=== PATIENT | female | born 1930 | race Caucasian/White ===

== ENCOUNTER 2017-06-12 01:10 | Inpatient (IN) ==
[2017-06-11 15:09] LABS: MANUAL DIFF NEEDED? NO
[2017-06-11 15:19] LABS: BASO% 0.4 % (0.0-0.8); EOS# 0.21 X1000 (0.0-0.7); EOS% 3.1 % (0.0-10.0); HEMATOCRIT 37.2 % (37.0-47.0); HEMOGLOBIN 12.1 g/dL (12.0-16.0); IMM GRAN# 0.02 X1000 (0.0-0.04); IMM GRAN% 0.3 % (0.0-0.5); LYMPH# 0.85 X1000 (1.2-3.4); LYMPH% 12.7 % (20.5-51.1); MCH 30.9 PG (27-31); MCHC 32.5 g/dL (33-37); MCV 94.9 FL (81-99); MONO# 0.74 X1000 (0.11-0.59); MPV 10.1 FL (7.4-10.4); NEUT% 72.5 % (42.2-75.2); PLT 264 X1000 (130-400); RBC 3.92 XMIL (4.2-5.4)
[2017-06-11 15:23] LABS: URINE SOURCE CLEAN CATCH
[2017-06-11 15:27] LABS: BILIRUBIN URINE SMALL (NEGATIVE); BLOOD URINE LARGE (NEGATIVE); CLARITY CLEAR (CLEAR); COLOR YELLOW; GLUCOSE URINE 100 mg/dL (NEGATIVE); LEUKOCYTES URINE MODERATE (NEGATIVE); NITRITE URINE NEGATIVE (NEGATIVE); PROTEIN URINE 100 mg/dL (NEGATIVE); SP GRAVITY URINE >= 1.030
[2017-06-11 15:30] LABS: URINE EPITHELIAL CELLS >10 /HPF (<10); URINE WBC TNTC /HPF (<10)
[2017-06-11 15:35] LABS: INR 1.04; PTT 25.6 Seconds (22.0-36.0)
--- NOTE | 2017-06-11 15:41 | EKG Report ---
Test Performed on : 06/11/2017 2:20:13 PM Test Reason : PAT Blood Pressure : / mmHG Vent. Rate : 064 BPM Atrial Rate : 064 BPM P-R Int : 142 ms QRS Dur : 082 ms QT Int : 430 ms P-R-T Axes : 082 011 051 degrees QTc Int : 443 ms Normal sinus rhythm. Normal ECG No previous ECGs available Confirmed by Saul Rodriguez MD ([id number]) on 06/11/2017 8:38:02 PM
[2017-06-11 15:52] LABS: CALCIUM 8.9 mg/dL (8.8-10.2); POTASSIUM 4.5 mmol/L (3.5-5.1)
[2017-06-12] MEDS ORDERED: COLACE ONE (10:29)
[2017-06-12] MEDS ORDERED: CELEBREX ONE (10:30)
[2017-06-12] MEDS ORDERED: LYRICA ONE (10:30)
[2017-06-12] MEDS ORDERED: REGLAN ONE (10:30)
[2017-06-12] MEDS ORDERED: PEPCID ONE (10:30)
[2017-06-12] MEDS ORDERED: LR 1,000 ML ONE (10:31)
[2017-06-12] MEDS ORDERED: VANCOMYCIN 1 GM/NS 1 GM/250 ML IVPB ONE (10:31)
[2017-06-12] MEDS ORDERED: XYLOCAINE-MPF 2% ONE (10:55)
[2017-06-12] MEDS ORDERED: QUELICIN (DOSE) ONE (10:55)
[2017-06-12] MEDS ORDERED: NEO-SYNEPHRINE ONE (10:55)
[2017-06-12] MEDS ORDERED: DURAMORPH ONE (10:58)
[2017-06-12] MEDS ORDERED: TORADOL ONE (10:58)
[2017-06-12] MEDS ORDERED: VANCOMYCIN ONE (10:59)
[2017-06-12] MEDS ORDERED: SODIUM CHLORIDE 0.9% ONE (10:59)
[2017-06-12] MEDS ORDERED: CYKLOKAPRON 1,000 MG/NS 1,000 MG/100 ML IVPB ONE (10:59)
[2017-06-12] MEDS ORDERED: MARCAINE 0.25% PF ONE (10:59)
[2017-06-12] MEDS ORDERED: EXPAREL 1.3% ONE (10:59)
[2017-06-12] MEDS ORDERED: NEOSPORIN G.U. IRRIGANT ONE (11:00)
[2017-06-12] MEDS ORDERED: VERSED ONE (11:34)
[2017-06-12] MEDS ORDERED: NAROPIN 0.5% ONE (11:34)
[2017-06-12] MEDS ORDERED: APRESOLINE ONE (12:33)
[2017-06-12] MEDS ORDERED: AMIDATE ONE (12:53)
[2017-06-12 13:16] LABS: URINE MICRO REVIEW NEEDED? NO; URINE SOURCE CATH
[2017-06-12 13:21] LABS: BILIRUBIN URINE NEGATIVE (NEGATIVE); BLOOD URINE NEGATIVE (NEGATIVE); COLOR YELLOW; GLUCOSE URINE NEGATIVE (NEGATIVE); LEUKOCYTES URINE NEGATIVE (NEGATIVE); NITRITE URINE NEGATIVE (NEGATIVE); PROTEIN URINE NEGATIVE (NEGATIVE); SP GRAVITY URINE 1.017; TURBIDITY URINE CLEAR (CLEAR); UROBILINOGEN URINE NORMAL (NORMAL)
[2017-06-12 13:23] LABS: UR EPITHELIAL CELLS <10 /HPF (<10); URINE BACTERIA NEGATIVE /HPF; URINE RBC <10 /HPF (<10); URINE WBC <10 /HPF (<10)
--- NOTE | 2017-06-12 14:50 | Diag Imaging Result Doc PS360 ---
SHOULDER 1 VIEW LEFT - 06/12/2017 INDICATION: Left total shoulder TECHNIQUE: COMPARISON: 05/17/2017 FINDINGS: There has been left total shoulder arthroplasty. Alignment is anatomic. No hardware fracture or loosening. Stable widening of the acromioclavicular joint. IMPRESSION: No evidence of complication. Electronically signed by Luis Newton 06/12/2017 2:47 PM
[2017-06-12] MEDS: NS 1,000 ML ONE (15:00)
[2017-06-12] MEDS ORDERED: MORPHINE IV PRN (15:50)
[2017-06-12] MEDS ORDERED: ZOFRAN IV PRN (16:00)
[2017-06-12] MEDS: NS 1,000 ML IV SCH (16:00)
[2017-06-12] MEDS ORDERED: CYKLOKAPRON 1,000 MG in NS 100 ML IV ONE (18:40)
[2017-06-12] MEDS: LYRICA PO SCH (20:17)
[2017-06-12] MEDS: MIRAPEX PO SCH (20:18)
[2017-06-12] MEDS: OXY IR PO PRN (20:18)
[2017-06-12] MEDS: ZOLOFT PO SCH (20:18)
[2017-06-12] MEDS: PERIDEX MT SCH (20:19)
[2017-06-12] MEDS: TRANDATE PO SCH (20:19)
--- NOTE | 2017-06-12 21:28 | OPERATIVE NOTE ---
PROCEDURE DATE: 06/12/2017 PREOPERATIVE DIAGNOSIS: Left displaced proximal humeral fracture. POSTOPERATIVE DIAGNOSIS: Left displaced proximal humeral fracture. PROCEDURE: Left reverse total shoulder arthroplasty with DePuy Delta Xtend size 12 cemented stem, a 42+ 6 humeral cup, and a 42 eccentric glenosphere. SURGEONS: Nick SURG NURSE: Justin Welch SECOND AIRLINE STEWARDESS: Wm Rivas ANESTHESIA: General. IV FLUIDS: 700 mL lactated Ringer's. ESTIMATED BLOOD LOSS: 100 mL. COMPLICATIONS: None. INDICATION: The patient is a pleasant, 87-year-old female who is status post fall, sustaining a left proximal humeral fracture. The patient has had displacement. X-rays revealed displacement of the fracture, and recommendation to proceed with left reverse shoulder arthroplasty was offered. Risks and benefits of surgery were explained, including the risks of anesthesia, , bleeding, infection, failure to relieve pain, postoperative stiffness, nerve injury, blood clots, and other imponderables. All questions answered. The patient and family wished to proceed with surgery. DETAILS OF OPERATION: The patient was taken to the operating room and placed supine on the operating table. Once adequate anesthesia was obtained, the patient was placed in semi-Price beach-chair position. The left shoulder was subsequently prepped and draped in usual sterile fashion. Standard deltopectoral incision made with skin knife. Hemostasis was obtained using electrocautery. The deltopectoral interval was then developed. Retractor was then placed. Jimenez retractor was placed. The clavipectoral fascia was then elevated. The site of the fracture was then identified. Elevation of soft tissue was conducted off the proximal humerus and the removal of the superior portion of the fracture of the humeral head and greater and the lesser tuberosities was performed. After this had been performed, attention was then turned to the glenoid. Circumferential dissection then performed with a deep knife. A guide was then placed in position. The guide pin was placed in the glenoid. Reaming was then conducted. After this had been performed, central hole was dilated. Wounds copiously irrigated with antibiotic pulsatile lavage. Three locking screws and 1 nonlocking screw were placed. The wound was copiously irrigated once again. The patient had a 42 eccentric glenosphere placed with the eccentricity placed inferiorly and had good purchase. Attention then turned to the humerus. Reaming was then conducted of the intramedullary canal. A trial stem was then placed, up to size 12 mm. A trial 12 stem was then placed to determine the appropriate height. After this had been determined, the trial was removed. Copious irrigation was then performed with antibiotic pulsatile lavage while vancomycin was mixed cement on back table. The cement was then impacted in the humeral shaft. The size 12 delta Xtend stem was then placed in position and held in 10 degrees of retroversion while cement cured. After the cement had cured, trial cup size was then placed. A 42+ 6 humeral cup had excellent stability and range of motion. Trial cup was then removed. The wound was copiously once again. A 42+ 6 humeral cup was then placed. The shoulder was reduced, carried through range of motion, and had good range of motion and good stability. Exparel was placed in deep soft tissue, as well subcutaneous tissue. The wound was copiously irrigated once again with antibiotic pulsatile lavage. A 2-0 Vicryl was then used to repair the subcutaneous tissue, followed by running 2-0 Prolene. Benzoin and Steri-Strips were applied. Adaptic, sterile Webril, sterile 4 x 4's, ABD pad, and tape to the left shoulder, followed by a shoulder immobilizer. All counts were correct. The patient tolerated the procedure well and was transferred to recovery room in stable condition. cc: Kendall Romero MD
[2017-06-12] MEDS ORDERED: VANCOMYCIN 1 GM/NS 1 GM/250 ML IVPB IV ONE (23:00)
[2017-06-13] MEDS: OXY IR PO PRN ×5 (01:11→20:01)
[2017-06-13] MEDS: NS 1,000 ML IV SCH ×2 (05:25→16:09)
[2017-06-13] MEDS: NS 1,000 ML ONE (05:26)
[2017-06-13 06:04] LABS: AGAP 11; BUN 23 mg/dL (8-22); CALCIUM 8.1 mg/dL (8.8-10.2); CHLORIDE 102 mmol/L (98-107); COSMO 276; HEMATOCRIT 30.4 % (37.0-47.0); HEMOGLOBIN 9.8 g/dL (12.0-16.0); POTASSIUM 4.1 mmol/L (3.5-5.1); SODIUM 137 mmol/L (136-145); TCO2 24 mmol/L (25-35)
--- NOTE | 2017-06-13 07:21 | PROGRESS NOTE ---
DATE: 06/13/2017 SUBJECTIVE: The patient is a pleasant 87-year-old female who is 1 day status post left reversal shoulder arthroplasty. Patient is currently resting comfortably this morning. OBJECTIVE: On physical exam, patient's left upper extremity her dressing is intact. She is neurovascularly intact. She is able to flex in all of her fingers. LABORATORY DATA: Her hemoglobin is 9.8 and hematocrit is 30.4. IMPRESSION: Postop day #1 status post left reversal shoulder arthroplasty. PLAN: At this point, we will change her dressing. We will Hep-Lock her IV and discontinue her Gaines. We will mobilize her physical therapy. We will see how the patient responds to physical therapy and determine discharge planning. cc: Kendall Romero MD
--- NOTE | 2017-06-13 09:06 | PROGRESS NOTE ---
DATE: 06/13/2017 SUBJECTIVE: She is postoperative day #1 for a left reverse total shoulder arthroplasty secondary to a left displaced proximal humeral fracture. Postoperatively, her blood pressure was low. She felt dizzy and lightheaded. Her blood pressure is now trending upward. She denies any chest pain, palpitations, or anginal equivalents. OBJECTIVE: Vital signs: Temperature 99.2, pulse 80, respirations 20, BP 161/54. CV: Regular rate and rhythm with a 2/6 systolic ejection murmur at the left sternal margin. Lungs: Clear. Abdomen: Soft, nontender, with active bowel sounds. ASSESSMENT AND PLAN: Hypertension. Her blood pressure is trend upward. We will resume labetalol 200 mg b.i.d. and Avapro 300 mg daily. We will monitor her blood pressure closely. cc: MD Kendall Gonzalez MD
[2017-06-13] MEDS: MIRAPEX PO SCH ×2 (10:26→20:00)
[2017-06-13] MEDS: ESTRACE PO SCH (10:27)
[2017-06-13] MEDS: TRANDATE PO SCH ×2 (10:28→20:01)
[2017-06-13] MEDS: WELCHOL PO SCH ×2 (10:28→20:01)
[2017-06-13] MEDS: AVAPRO PO SCH (10:28)
[2017-06-13] MEDS: ARICEPT PO SCH (10:29)
[2017-06-13] MEDS: PERIDEX MT SCH ×2 (10:34→20:00)
[2017-06-13] MEDS: NAMENDA XR PO SCH (11:06)
[2017-06-13] MEDS: ZOLOFT PO SCH (20:00)
[2017-06-13] MEDS: LYRICA PO SCH (20:01)
[2017-06-14] MEDS: OXY IR PO PRN ×3 (03:36→20:52)
[2017-06-14 05:36] LABS: HEMATOCRIT 29.3 % (37.0-47.0); HEMOGLOBIN 9.7 g/dL (12.0-16.0)
--- NOTE | 2017-06-14 08:47 | PROGRESS NOTE ---
DATE: 06/14/2017 SUBJECTIVE: The patient is a pleasant, 87-year-old female, who is 2 days status post left reverse shoulder arthroplasty for a proximal humeral fracture. She is currently sitting in a chair and resting comfortably. OBJECTIVE: Extremities: On physical examination of the patient's left upper extremity, her wound looks good. There are no signs of infection. She is able to flex her fingers. She is neurovascularly intact distally. 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 LABORATORY DATA: Her hemoglobin is 9.7, hematocrit is 29.3. IMPRESSION: 1. Postoperative day #2 status post left reverse shoulder arthroplasty. 2. Acute blood loss anemia, asymptomatic. PLAN: Plan at this point reveals the patient is slow to mobilize with physical therapy, and it is felt that she would benefit from inpatient rehabilitation when [facility] have been consulted for this. We will continue working with physical therapy, and will recheck her hemoglobin and hematocrit tomorrow. cc: Kendall Romero MD
[2017-06-14] MEDS: TRANDATE PO SCH ×2 (10:19→20:53)
[2017-06-14] MEDS: ESTRACE PO SCH (10:19)
[2017-06-14] MEDS: MIRAPEX PO SCH ×2 (10:19→20:53)
[2017-06-14] MEDS: WELCHOL PO SCH ×2 (10:19→20:53)
[2017-06-14] MEDS: AVAPRO PO SCH (10:19)
[2017-06-14] MEDS: PERIDEX MT SCH ×2 (10:20→20:53)
[2017-06-14] MEDS: ARICEPT PO SCH (10:20)
[2017-06-14] MEDS: NORVASC PO SCH (10:20)
[2017-06-14] MEDS: NAMENDA XR PO SCH (10:20)
--- NOTE | 2017-06-14 11:03 | PROGRESS NOTE ---
DATE: 06/14/2017 SUBJECTIVE: Ms. Finley is sitting up in a chair. She has a sling on the left arm, and I think she is a little discouraged. She is hurting in the left shoulder. She said the left shoulder just had surgery. The right has a torn rotator cuff, and they are looking for a rehab place for her. Her family does not want her to go home. OBJECTIVE: Temperature 98.8 degrees, pulse 80, respirations 16, blood pressure 154/51. Lungs are clear in all lung mcdowell. Cardiovascular: Regular and rate without murmur or S3. Abdomen is soft. Skin is warm and dry. Urine output is 2200 mL. PAST MEDICAL HISTORY: Reviewed. ASSESSMENT AND PLAN: 1. Postoperative day #2. Status post left reverse shoulder arthroplasty. Family really wants her to go to rehab. She is not able to stay by herself. Social Service is looking for opportunities, probably on Friday. 2. Acute blood loss anemia, asymptomatic. Lab stable. Hematocrit 29, hemoglobin 9.7. Shoulder x-ray from 06/12/2017. No evidence of complication. Status post total left shoulder arthroplasty. OTHER PERTINENT PAST MEDICAL HISTORY: History of COPD, which I think is mild. History of hypertension, osteoarthritis, macular degeneration, history of anxiety and depression, dementia, peripheral edema, neuropathy in legs, degenerative disk disease, bilateral hearing loss. cc: MD Kendall Canales MD
[2017-06-14] MEDS: NS 1,000 ML IV SCH ×2 (12:33→17:59)
[2017-06-14] MEDS: LYRICA PO SCH (20:52)
[2017-06-14] MEDS: ZOLOFT PO SCH (20:53)
[2017-06-15] MEDS: OXY IR PO PRN ×5 (03:45→19:26)
[2017-06-15] MEDS: NS 1,000 ML IV SCH ×2 (04:28→16:52)
[2017-06-15 06:02] LABS: HEMOGLOBIN 9.5 g/dL (12.0-16.0)
--- NOTE | 2017-06-15 08:19 | PROGRESS NOTE ---
DATE: 06/15/2017 SUBJECTIVE: Ms. Finley was asleep this morning. After I woke her up, she had just gotten a pain pill. Has been hurting a little bit in the left shoulder but overall doing okay. OBJECTIVE: Left Upper Extremity Examination: Dressing is clean, dry, and intact. She is neurovascularly intact to the left upper extremity. Just a little bit of swelling to the shoulder. Good 2+ radial pulse. ASSESSMENT: Status post left reverse total shoulder arthroplasty. PLAN: I think Ms. Finley is doing well. We will still plan on discharging her to rehab as soon as everything is set up. cc: MD Kendall Valenzuela MD
[2017-06-15] MEDS: MIRAPEX PO SCH ×2 (10:39→20:56)
[2017-06-15] MEDS: NAMENDA XR PO SCH (10:40)
[2017-06-15] MEDS: NORVASC PO SCH (10:40)
[2017-06-15] MEDS: WELCHOL PO SCH ×2 (10:40→20:56)
[2017-06-15] MEDS: TRANDATE PO SCH ×2 (10:41→20:56)
[2017-06-15] MEDS: ESTRACE PO SCH (10:41)
[2017-06-15] MEDS: AVAPRO PO SCH (10:41)
[2017-06-15] MEDS: PERIDEX MT SCH ×2 (10:42→20:56)
[2017-06-15] MEDS: ARICEPT PO SCH (10:42)
--- NOTE | 2017-06-15 13:11 | PROGRESS NOTE ---
DATE: 06/15/2017 SUBJECTIVE: Ms. Finley is laying in bed. She says she feels better. Left arm feels better out of the sling and she got a pretty good night sleep last night. Appetite is good and no trouble with breathing. OBJECTIVE: Vital Signs: Temperature 98.1 degrees, pulse 76, respirations 18, blood pressure 183/78. Her range of blood pressures have been 148 to around 188 over 51 to 78. Lungs: Clear in all lung mcdowell. Cardiovascular: Regular rhythm and rate without murmur or S3. Abdomen: Soft. Skin: Warm and dry. Urine output is 1700 mL. ASSESSMENT AND PLAN: 1. Status post left reversal total shoulder arthroplasty. She is doing very well. Hope to get her to rehab tomorrow. 2. Acute blood loss anemia, asymptomatic. Hematocrit stable at 29, hemoglobin 9.7. On review of her orders I do not see anything to change at this point. Awaiting on rehab. cc: MD Kendall Canales MD
[2017-06-15] MEDS: ZOLOFT PO SCH (20:56)
[2017-06-15] MEDS: LYRICA PO SCH (20:56)
[2017-06-16] MEDS: NS 1,000 ML IV SCH (04:54)
[2017-06-16] MEDS: OXY IR PO PRN ×3 (04:54→12:46)
--- NOTE | 2017-06-16 06:54 | PROGRESS NOTE ---
DATE: 06/16/2017 SUBJECTIVE: Patient is a pleasant 87-year-old female who is 4 days status post left reverse shoulder arthroplasty. She would presents for evaluation. OBJECTIVE: The patient's left upper extremity, her wound looks good. There is no signs or symptoms of infection. She has smooth, passive range of motion. 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 Neurovascularly intact distally. LABORATORY DATA: Her hemoglobin yesterday was 9.5 and 29.0, and she was asymptomatic. IMPRESSION: Postoperative day #4 status post left reverse shoulder arthroplasty. PLAN: At this point, patient will be discharged to rehab. cc: Kendall Romero MD
--- NOTE | 2017-06-16 07:34 | DISCHARGE SUMMARY ---
ADMISSION DATE: 06/12/2017 DISCHARGE DATE: 06/16/2017 ADMITTING DIAGNOSIS: Left displaced proximal humeral fracture. DISCHARGE DIAGNOSES: 1. Left displaced proximal humeral fracture, status post left reverse total shoulder arthroplasty. 2. Acute blood loss anemia. BRIEF HISTORY: The patient is a pleasant, 87-year-old female who is status post fall, sustaining a left displaced proximal humeral fracture. X-rays were reviewed, and recommendation to proceed with left reverse total shoulder arthroplasty was offered. Risks and benefits of surgery were explained, including the risks of anesthesia, , bleeding, infection, failure to relieve pain, postoperative stiffness, nerve injury, blood clots, and other imponderables. All questions were answered. The patient and family wished to proceed with surgery. HOSPITAL COURSE: The patient was admitted to the hospital and underwent left reverse total shoulder arthroplasty. The patient tolerated the procedure well. She had an uneventful postoperative course. By postoperative day #3, her hemoglobin and hematocrit had stabilized to 9.5 and 29.0, and she was asymptomatic. Prior to discharge, the patient was afebrile, tolerating regular diet, wound looked good. There were no signs or symptoms of infection. Her pain was well controlled with p.o. medications. It was felt the patient would benefit with inpatient rehabilitation. The patient and family were agreeable to this. DISCHARGE MEDICATIONS: OxyIR 5 mg 1 to 2 p.o. every 4 hours p.r.n. pain. For remaining medications, see please medication list. PLAN: 1. At this point, the patient will be discharged for inpatient rehab. 2. Consult Physical Therapy for mobilization and passive range of motion exercises to the left shoulder, and active range of motion to the elbow, wrist, and fingers. 3. Discontinue sutures in 10 days. 4. Follow up in the office upon discharge from rehab in 3 to 4 weeks. cc: Kendall Romero MD
[2017-06-16] MEDS: PERIDEX MT SCH ×2 (08:32→08:36)
[2017-06-16] MEDS: ARICEPT PO SCH (08:33)
[2017-06-16] MEDS: AVAPRO PO SCH (08:33)
[2017-06-16] MEDS: TRANDATE PO SCH (08:33)
[2017-06-16] MEDS: ESTRACE PO SCH (08:33)
[2017-06-16] MEDS: MIRAPEX PO SCH (08:33)
[2017-06-16] MEDS: NORVASC PO SCH (08:33)
[2017-06-16] MEDS: WELCHOL PO SCH (08:33)
[2017-06-16] MEDS: NAMENDA XR PO SCH (08:33)
--- NOTE | 2017-06-16 10:16 | Diag Imaging Result Doc PS360 ---
CHEST-PORTABLE - 06/16/2017 INDICATION: rehab placement TECHNIQUE: COMPARISON: 02/03/2015 FINDINGS: There are stable benign calcified granulomas bilaterally. Stable mild cardiomegaly. Pulmonary vascularity is normal. No focal infiltrates, pneumothorax, or pleural effusion. IMPRESSION: Cardiomegaly. No acute disease or change from prior. Electronically signed by Luis Newton 06/16/2017 10:14 AM
[2017-06-16 12:55] VITALS: BP 142/52
== END 2017-06-16 16:11 ==
LOC: SURHOLD 01:10 → 4N 15:36
PROVIDERS: ADMIT Orthopaedic Surgery Adult Reconstructive Orthopaedic Surgery; ATTEND Orthopaedic Surgery Adult Reconstructive Orthopaedic Surgery